=== PATIENT | female | born 1960 | race Caucasian/White ===

== ENCOUNTER 2017-04-08 09:47 | Emergency (ER) | payer BC ==
--- NOTE | 2017-04-08 10:19 | Emergency Department Record ---
History of Present Illness - General Chief complaint: Extremity Problem Stated complaint: RULE OUT BLOOD CLOT Time Seen by Provider: 04/08/17 09:50 Source: Patient Mode of Arrival: Ambulatory Limitations: No limitations - History of Present Illness Initial comments: 56 yo female presents to ED with a CC of pain and discoloration to the left sided 4th great toe. Patient denies injury or trauma, but is concerned about possible DVT. Patient denies calf pain or swelling, but reports previous DVT. Patient is no-longer taking anticoagulation. Patient reports that her previous DVT may have been caused by a vein stripping procedure to the LLE. Patient does report history of smoking and HTN. MD Complaint: Extremity pain, Other (discoloration) Onset/Timin -: Days(s) Location: Left, Foot History of Same: Yes Radiation: None Severity scale (1-10): 1 Quality: Aching Improves with: Nothing Worsens with: Nothing Associated Symptoms: Denies other symptoms - Related Data Home Medications Medication Instructions Recorded Confirmed Last Taken Bisoprol/Hydrochlorothiazide [Ziac 1 each PO DAILY 04/09/15 04/08/17 1 Day Ago 2.5-6.25 mg Tablet] ~04/07/17 Nortriptyline HCl [Pamelor] 75 mg PO DAILY 04/09/15 04/08/17 1 Day Ago ~04/07/17 Omeprazole [Prilosec] 20 mg PO DAILY 04/09/15 04/08/17 1 Day Ago ~04/07/17 Allergies Allergy/AdvReac Type Severity Reaction Status Date / Time codeine Allergy Intermediate NAUSEA AND Verified 04/08/17 10:02 VOMITING hydrocodone bitartrate Allergy Intermediate NAUSEA AND Verified 04/08/17 10:02 [From Vicodin] VOMITING Travel Screening - Travel/Exposure Within Last 30 Days Have you traveled within the last 30 days?: No - Travel/Exposure Within Last Year Have you traveled outside the [place] in the last year?: No - Additonal Travel Details Have you been exposed to anyone with a communicable illness?: No - Travel Symptoms Symptom Screening: None Review of Systems Constitutional: Denies: Chills, Fever, Malaise, Night sweats Eyes: Denies: Eye discharge, Eye pain ENT: Denies: Congestion, Ear pain, Epistaxis Respiratory: Denies: Cough, Dyspnea Cardiovascular: Denies: Chest pain, Dyspnea on exertion Endocrine: Denies: Fatigue, Heat or cold intolerance Gastrointestinal: Denies: Abdominal pain, Nausea, Vomiting Genitourinary: Denies: Incontinence, Retention Musculoskeletal: Denies: Arthralgia, Back pain, Gout, Joint swelling Skin: Reports: Change in color. Denies: Bruising, Change in hair/nails Neurological: Denies: Abnormal gait, Confusion, Headache, Seizure Psychiatric: Denies: Anxiety, Homicidal thoughts Hematological/Lymphatic: Reports: Blood Clots. Denies: Anemia, Easy bleeding, Easy bruising Past Medical History - SOCIAL HISTORY Smoking Status: Current every day smoker Alcohol Use: Occassional Drug Use: None - RESPIRATORY Hx Respiratory Disorders: No - CARDIOVASCULAR Hx Cardio Disorders: Yes Hx Hypertension: Yes (good control) - NEURO Hx Neuro Disorders: No - GI Hx GI Disorders: Yes Hx Diverticulitis: Yes Hx Reflux: Yes Hx Rectal Bleeding: Yes (no bleeding now) Hx of Polyps: Yes Comment:: too much ibuprofen no bleeding - Hx Genitourinary Disorders: Yes Hx Bladder Problem: Yes (overactive) - ENDOCRINE Hx Endocrine Disorders: No - MUSCULOSKELETAL Hx Musculoskeletal Disorders: Yes Hx Arthritis: Yes (lt knee) - PSYCH Hx Psych Problems: Yes Hx Anxiety: Yes Hx Depression: Yes - HEMATOLOGY/ONCOLOGY Hx Hematology/Oncology Disorders: No Family Medical History Any Significant Family History?: Yes Hx Cancer: Grandparents *Cancer Comment: [facility] Hx HTN: Mother Physical Exam - General General Appearance: Alert, Oriented x3, Cooperative, No acute distress Limitations: No limitations - Head Head exam: Atraumatic, Normocephalic, Normal inspection Head exam detail: negative: Abrasion, Contusion, Ramsey's sign, General tenderness, Hematoma, Laceration - Eye Eye exam: Normal appearance. negative: Conjunctival injection, Periorbital swelling, Periorbital tenderness, Scleral icterus - ENT Ear exam: negative: Auricular hematoma, Auricular trauma Nasal Exam: negative: Active bleeding, Discharge, Dried blood, Foreign body Mouth exam: negative: Drooling, Laceration, Muffled voice, Tongue elevation - Neck Neck exam: Normal inspection. negative: Meningismus, Tenderness - Respiratory Respiratory exam: Normal lung sounds bilaterally. negative: Rales, Respiratory distress, Rhonchi, Stridor - Cardiovascular Cardiovascular Exam: Regular rate, Normal rhythm, Normal heart sounds Peripheral Pulses: 1+: Dorsalis Pedis (L) (Decreased DPP on examination) - GI/Abdominal GI/Abdominal exam: Soft. negative: Rebound, Rigid, Tenderness - Rectal Rectal exam: Deferred - exam: Deferred - Extremities Extremities exam: Tenderness, Other (Mild TTP over robert toes of the left foot, plantar surface discoloration is noted in robert presence of a decreased DPP. ). negative: Calf tenderness, Pedal edema - Back Back exam: Denies: CVA tenderness (R), CVA tenderness (L) - Neurological Neurological exam: Alert, Normal gait, Oriented X3 - Psychiatric Psychiatric exam: Normal affect, Normal mood - Skin Skin exam: Normal color. negative: Abrasion Type of lesion: negative: abrasion Course Vital Signs 04/08/17 09:56 Temperature 98.2 F Pulse Rate [ 85 Pulse Ox Probe] Respiratory 16 Rate Blood Pressure 160/93 [Left Arm] Pulse Ox 97 - Reevaluation(s) Reevaluation #1: 04/08/17 10:19 Case was discussed with Dr. Howell, will accept patient for transfer to perform arterial doppler studies, possible venous doppler as well. Given the duration of sympotms, patient appears stable for transfer via private vehicle directly to the ED for evaluation. Disposition Disposition: Transfer Clinical Impression: Lower extremity pain Qualifiers: Laterality: left Qualified Code(s): M79.605 - Pain in left leg Transfer To: [facility] Reason For Transfer: Exclude arterial insufficiency Accepting Physician: Dante Time Discussed w/Accepting Physician: 10:22 Forms: Patient Portal Access
== END 2017-04-08 10:28 | disposition short-term general hospital (02) ==
LOC: ER 09:47
DX: M79.675 Pain in left toe(s) (principal); I10 Essential (primary) hypertension; Z86.718 Personal history of other venous thrombosis and embolism; F17.210 Nicotine dependence, cigarettes, uncomplicated
CPT/HCPCS: 99283